=== PATIENT | female | born 1940 | race African-American/Black ===

== ENCOUNTER 2020-09-26 18:48 | Emergency (ER) | payer OTHER ==
[~2020-09-26] VITALS: Ht 157.5 cm; Wt 55.0 kg
[2020-09-26] MEDS ORDERED: ACETAMINOPHEN 325MG TABLET PO STA (22:35)
[2020-09-27 00:57] VITALS: BP 151/67
== END 2020-09-27 00:59 | disposition home or self-care (01) ==
LOC: ER 18:48
DX: M71.22 Synovial cyst of popliteal space [Baker], left knee (principal); I10 Essential (primary) hypertension
CPT/HCPCS: 73562; 93005; 93971; 99285